=== PATIENT | male | born 1965 | race Caucasian/White ===

== ENCOUNTER 2024-10-19 20:06 | Emergency (ER) | payer OTHER, SELFPAY ==
[2024-10-19 20:08] VITALS: BP 157/94
--- NOTE | 2024-10-19 22:50 | ED.GENMED ---
History of Present Illness
General
Chief Complaint: Dental Problem
Source: patient
Exam Limitations: none
Time Seen by Provider: 10/19/24 22:46
Nursing documentation reviewed up to this point in time: agreed with
History of Present Illness
History of Present Illness:
59-year-old male presents emergency department due to a left upper molar that became painful this morning. He took ibuprofen which did help. He denies any fevers or chest pain.
Past History
Past History
ED Past Medical History: None
ED Past Surgical History: None
Social History
Tobacco: Non-smoker
Alcohol: None
Drug: None
Employment: Employed
Review of Systems
Review of Systems
Allergies reviewed?: Yes
All Other Systems: Not applicable
Constitutional: Reports no symptoms
EENT: Reports mouth pain
Respiratory: Reports no symptoms
Cardiac: Reports no symptoms; Denies chest pain
ABD/GI: Reports no symptoms
: Reports no symptoms
Musculoskeletal: Reports no symptoms
Skin: Reports no symptoms
Neurological: Reports no symptoms
Endocrine: Reports no symptoms
Hematologic/Lymphatic: Reports no symptoms
Psychiatric: Reports no symptoms
Phy Exam
Physical Exam
Physical Exam:
Physical Exam
General: no apparent distress, not acutely ill
Neck: supple. no meningeal signs. normal posterior pharynx
HEENT: Pupils equal round reactive to light, EOMI, dental caries, tender left upper molar, no abscess seen
Lungs: no acute respiratory distress.
Neuro: alert and oriented. no focal neurological deficits cranial nerves II through XII intact
Skin: no rash
Psychiatric: well kept. interactive and cooperative
Extremities: no edema. no calf tenderness. negative homans. good distal pulses
Course
Vital Signs
Initial and Last Documented VS:
Initial Vital Signs
Temp Pulse Resp BP Pulse Ox
98.5 F 80 16 157/94 98
10/19/24 20:08 10/19/24 20:08 10/19/24 20:08 10/19/24 20:08 10/19/24 20:08
Last Documented Vital Signs
Temp Pulse Resp BP Pulse Ox
98.5 F 80 16 157/94 98
10/19/24 20:08 10/19/24 20:08 10/19/24 20:08 10/19/24 20:08 10/19/24 20:08
MDM/Problems Addressed
Differential Diagnosis Includes:
Dental abscess, dental caries
MDM/Problems Addressed:
59-year-old male with dental pain. Treat with amoxicillin and follow-up with fundraising officer.
*Pulse Oximetry
Patient hypoxic: no
*Critical Care Note
Total Time (30-74mins, 75-104mins- exclusive of procedures): Not Applicable
Data Reviewed
Further Testing Considered But Not Given:
CT scan not indicated
Patient Management
Social determinants of health affecting care: Living situation
Escalation/DeEscalation of care consider admission/obs:
Admit not indicated
ED Attending Note
-
Portions of this chart may have been created with voice recognition software.� Occasional wrong word or��sound alike� substitutions may have occurred due to the inherent limitations of voice recognition software.
Discharge Plan
Departure
Patient Disposition: Home (Routine Discharge)
Date of Disposition: 10/19/24
Time of Disposition: 22:53
Patient with high blood pressure during this ER visit?: Yes
Condition: Good
Discharge Problem:
Pain due to dental caries
Instructions: Dental Pain (DC), BLOOD PRESSURE
Prescriptions:
New
amoxicillin 500 mg capsule
500 mg PO TID Qty: 15 0RF
Referrals:
Lavern Olsen MD [Family Provider] -
Interventions
Interventions:
*Risk Screen - Suicide Last Done: 10/19/24 20:08
*General Assessment Last Done: 10/19/24 20:08
*Neglect/Abuse Screening Last Done: 10/19/24 20:08
*ED- Fall Risk Assessment Last Done: 10/19/24 20:08
*ED COVID-19 Vaccine History Last Done: 10/19/24 20:08
Discharge Date and Time
Print Language: [id number]
[2024-10-19 23:07] VITALS: BP 108/85
[2024-10-19] MEDS: AMOXIL 500 MG PO (23:08)
== END 2024-10-19 23:18 | disposition home or self-care (01) ==
LOC: EMR 20:06
PROVIDERS: EMERGENCY PHYSICIAN Emergency Medicine; FAMILY PHYSICIAN Family Medicine
DX: K02.9 Dental caries, unspecified (principal); K08.89 Other specified disorders of teeth and supporting structures; R03.0 Elevated blood-pressure reading, without diagnosis of hypertension; Z88.2 Allergy status to sulfonamides
CPT/HCPCS: 99283